=== PATIENT | male | born 1960 | race Caucasian/White ===

== ENCOUNTER 2017-05-03 17:31 | Emergency (ER) | payer OTHER ==
[2017-05-03 17:43] VITALS: TEMP 98.2; O2SAT 95
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
[2017-05-03 18:50] VITALS: BP 124/70; PULSE 70; RESP 18
== END 2017-05-03 18:51 | disposition home or self-care (01) ==
LOC: CED 17:31
DX: S60.222A Contusion of left hand, initial encounter (principal); S60.212A Contusion of left wrist, initial encounter; W11.XXXA Fall on and from ladder, initial encounter
CPT/HCPCS: 73110-PO; 73130-PO